=== PATIENT | male | born 1955 | race Caucasian/White ===

== ENCOUNTER → 2017-12-27 | Outpatient (CLI) | payer OTHER ==
[~2017-12-27] MED LIST: ATOR-22 PO; FENO145T26 PO; FINA5TAB PO; GLIP-199 PO; LISI10TA PO; LPR25 PO; SOLI10TA2 PO
== END | disposition home or self-care (01) ==
LOC: C.LABSPEC 16:01
PROVIDERS: ATTEND Urology
DX: N40.1 Benign prostatic hyperplasia with lower urinary tract symptoms (principal); R35.0 Frequency of micturition; N39.41 Urge incontinence

== ENCOUNTER → 2018-01-13 | Outpatient (CLI) | payer OTHER ==
--- NOTE | 2018-01-13 15:01 | DIAGNOSTIC IMAGING REPORT ---
L KNEE 1 OR 2 VIEWS ROUTINE CLINICAL HISTORY: M25.562 pain COMPARISON: None. DISCUSSION: Focal osteochondral defect of the medial femoral condyle. This is immediately peripheral to the intercondylar notch. Maximum dimension appears to be 2.0 x 1.5 cm. There is no significant joint effusion. No additional acute bony abnormalities identified. There is no evidence for soft tissue swelling. IMPRESSION: Osteochondral defect of the medial femoral condyle measuring 2.0 x 1.5 cm in terms of surface dimension. Remainder the study is unremarkable. The above report was generated using voice recognition software. It may contain grammatical, syntax or spelling errors. Electronically signed by: Guillaume Thakkar M.D. 01/13/2018 2:59 PM Dictated Date/Time: 01/13/2018 2:58 PM
== END | disposition home or self-care (01) ==
LOC: C.RAD 14:24
PROVIDERS: ATTEND Nurse Practitioner Family
DX: M25.562 Pain in left knee (principal); M24.10 Other articular cartilage disorders, unspecified site

== ENCOUNTER → 2018-03-14 | Outpatient (CLI) | payer OTHER ==
[~2018-03-14] MED LIST changes: +ASPI81TA28 PO; +TRAM-10 PO
--- NOTE | 2018-03-14 11:40 | DIAGNOSTIC IMAGING REPORT ---
LEFT KNEE MRI HISTORY: LEFT KNEE PAIN COMPARISON STUDY: Left knee 02/06/2018. TECHNIQUE: Multiplanar multisequence MRI of the left knee was performed according to standard department protocol without the use of contrast. FINDINGS: Menisci: The lateral meniscus is intact. There is a small oblique tear extending to the undersurface of the body and posterior horn of the medial meniscus. Ligaments: The anterior and posterior cruciate ligaments are intact. The medial and lateral collateral ligaments are normal in appearance. Extensor mechanism: The quadriceps tendon and patellar ligament are intact. Articular cartilage and bone: Large osteochondral defect involving the medial aspect of the medial femoral condyle. The size of the defect is 2.0 x 1.6 cm. There is no surrounding edema. Therefore, this is consistent with an old process. There is a large intra-articular body medial to the medial femoral condyle which measures 2.1 x 1.1 cm. This is consistent with the osteochondral fragment. There is additional 5 mm intra-articular loose body posterior to the medial femoral condyle. No acute fracture or dislocation. There are few cartilage fissures within the medial femoral condyle. Mild cartilage thinning within the medial femoral condyle and medial tibial plateau. There is cartilage fraying within the median ridge of the patella. Joint effusion: Small to moderate Soft tissues: Subcentimeter popliteal cyst. IMPRESSION: 1. Redemonstration of the large osteochondral defect within the medial femoral condyle measuring 2.0 x 1.6 cm. No surrounding edema, therefore, this is consistent with a chronic process. 2. There are a total of 2 intra-articular loose bodies adjacent to the medial femoral condyle with the largest measuring 2.1 x 1.1 cm. This is likely due to the osteochondral defect. 3. Medial meniscus tear as described above. 4. Small to moderate joint effusion. Electronically signed by: Scot Pineda M.D. 03/14/2018 11:38 AM Dictated Date/Time: 03/14/2018 11:28 AM
== END | disposition home or self-care (01) ==
LOC: C.MRIBC 10:40
PROVIDERS: ATTEND Orthopaedic Surgery
DX: S83.242A Other tear of medial meniscus, current injury, left knee, initial encounter (principal); M25.462 Effusion, left knee; X58.XXXA Exposure to other specified factors, initial encounter

== ENCOUNTER → 2018-03-18 | Day surgery (SDC) | payer OTHER ==
[2018-03-14 14:43] LABS: BASO % 0.3 %; BASO ABS # 0.02 K/uL (0-0.2); EOS ABS # 0.14 K/uL (0-0.5); HEMATOCRIT 45.3 % (42-52); HEMOGLOBIN 15.9 g/dL (14.0-18.0); IG# 0.02 K/uL (0.00-0.02); LYMPH % 30.1 %; LYMPH ABS # 2.08 K/uL (1.2-3.4); MEAN CELL VOLUME 87.5 fL (80-100); MEAN CORPUSCULAR HEMOGLOBIN 30.7 pg (25-34); MEAN CORPUSCULAR HGB CONC 35.1 g/dl (32-36); MEAN PLATELET VOLUME 12.3 fL (7.4-10.4); MONO % 9.7 %; MONO ABS # 0.67 K/uL (0.11-0.59); NEUT % 57.6 %; NEUT ABS # 3.99 K/uL (1.4-6.5); PLATELET COUNT 133 K/uL (130-400); RED CELL DISTRIBUTION WIDTH CV 13.7 % (11.5-14.5); RED CELL DISTRIBUTION WIDTH SD 43.3 fL (36.4-46.3); WHITE BLOOD COUNT 6.92 K/uL (4.8-10.8)
[2018-03-14 15:05] LABS: POTASSIUM 4.2 mmol/L (3.5-5.1)
[2018-03-17 11:19] VITALS: Ht 175.3 cm; Wt 104.5 kg
[~2018-03-18] VITALS: Ht 175.3 cm; Wt 104.5 kg
[~2018-03-18] MED LIST changes: +ASPIRIN 325 MG ECTAB PO ONE; +ASPIRIN/ALUM/MAGNES/CAL CARB 325 MG TAB PO ONE; +ATROPINE SULFATE 0.1 MG/ML 5ML SYR IV PRN; +BUPIVACAINE 0.5 % 5 MG/1 ML PF 10ML VIAL ONE; +CEFAZOLIN 1000MG IV PUSH 7.5 ML IV SCH; +CEFAZOLIN 2000MG IV PUSH 15 ML IV SCH; +CEFAZOLIN SOD 2000MG/15 ML IV PUSH ONE; +DEXAMETHASONE SOD INJ 4 MG/ML VIAL ONE; +EpHEDrine SULFATE INJ 50 MG/ML AMP IV PRN; +EpINEphrine INJ 1MG/ML AMP 1 MG/ML AMP ONE; +FENTANYL CITRATE INJ 50 MCG/1 ML 2 ML VIAL IV PRN; +FENTANYL CITRATE INJ 50 MCG/1 ML 2 ML VIAL ONE; +FLUMAZENIL 0.1 MG/1 ML 10 ML VIAL IV PRN; +KETOROLAC TROMETHAMINE 30 MG/ML VIAL ONE; +LABETALOL HCL IV 5 MG/ML 20ML IV PRN; +LACTATED RINGER'S 1000ML 1,000 ML IV SCH; +LIDOCAINE HCL 2% 2 ML VIAL (20MG/ML) ONE; +MIDAZOLAM HCL 1 MG/ML 2ML VIAL ONE; +NALOXONE HCL 0.4 MG/1 ML VIAL/CARP IV PRN; +NURSING VERBAL MED ORDER ONE; +ONDANSETRON INJ 2 MG/ML 2 ML VIAL IV PRN; +ONDANSETRON INJ 2 MG/ML 2 ML VIAL ONE; +PROMETHAZINE HCL INJ 12.5 MG in SODIUM CHLORIDE 0.9% 50ML 50 ML IV PRN; +PROPOFOL IV EMULSION 10 MG/ML 20 ML VIAL ONE; +ROPIVACAINE 0.5% 5 MG/ML 30 ML VIAL ONE; +SODIUM CHLORIDE 0.9% 1000ML 1,000 ML IV SCH; +TRAMADOL HCL 50 MG TAB PO PRN
--- NOTE | 2018-03-18 08:21 | History & Physical Bridge - [place] ---
H&P Re-Evaluation Bridge Note: I have examined the patient, reviewed the History & Physical and in the interval since the performance of the History & Physical I have noted the following changes of clinical significance: No changes noted
--- NOTE | 2018-03-18 09:59 | [facility] Post Operative Brief Note ---
Immediate Operative Summary Operative Date March 18, 2018. Pre-Operative Diagnosis Left Knee Joint Osteoarthritis, Osteochondritis Post-Operative Diagnosis Same Procedure(s) Performed Left Knee Arthroscopy, Loose Body Removal Surgeon Dr. Butler Disc Inspector Surgeon(s) Leonel Stockton PA-C Estimated Blood Loss 0ml Findings Consistent with Post-Op Diagnosis Specimens None Drains None Anesthesia Type General Complication(s) none Disposition Disposition: Recovery Room / PACU
--- NOTE | 2018-03-18 10:09 | Discharge Instructions-SurgCtr ---
Discharge Instructions Date of Service March 18, 2018. Visit Reason for Visit: Left Knee Joint Osteoarthritis, Osteochondritis Discharge Discharge Diagnosis / Problem: SAME ABOVE Discharge Goals Goal(s): Decrease discomfort, Improve function Medications Stopped Medications Name(s): aspirin stopped couple days ago Activity Recommendations Activity Limitations: as noted below Lifting Limitations: until after follow-up appointment Exercise/Sports Limitations: until after follow-up appointment Shower/Bathe: tomorrow Anesthesia . Post Anesthesia Instructions: If you have had General Anesthesia or IV Sedation: * Do not drive today. * Resume driving when surgeon permits. * Do not make important decisions or sign legal documents today. * Call surgeon for: 1. Temperature elevations greater than 101 degrees F. 2. Uncontrollable pain. 3. Excessive bleeding. 4. Persistent nausea and vomiting. 5. Medication intolerance (nausea, vomiting or rash). * For nausea and vomiting use only clear liquids such as: tea, soda, bouillon until nausea subsides, then gradually increase diet as tolerated. * If you have any concerns or questions, call your surgeon's office. If physician is unavailable and it is an emergency, call 911 or go to the nearest emergency room. . Instructions / Follow-Up Instructions / Follow-Up MEDICATIONS: * Resume previous medications unless instructed otherwise by your surgeon. * Always take pain medication on a full stomach or with food to avoid upset stomach. * Do not drink alcohol or drive while taking narcotics. * Ibuprofen or Tylenol may be taken if narcotic not needed. SPECIAL CARE INSTRUCTIONS: __ None _X_ Keep extremity elevated and iced x 48 hours; apply ice 20-30 minutes 8-10 times/day. May remove at night. __ Crutches __ May discard when able __ Brace/Post-op shoe __ 24 hrs/day __ Remove at night _X_ Dressing __ Maintain until seen in office, may shower with plastic over site _X_ Remove dressings in 24-48 hours and then may shower _X_ Cover incisions with band-aids after showering __ Do not remove steri-strips TAKE 325 MG ASPIRIN TWICE DAILY UNTIL WE FOLLOW YOU UP IN THE OFFICE IN 2 WEEKS CONTINUE TO WEAR EUGENIE HOSE STOCKING UNTIL SEEN IN THE OFFICE IN 2 WEEKS Call physician if chills or temperature rises above 102 degrees or pain unrelieved by prescribed pain medications. Office [phone] Diet Recommendations Home Diet: resume previous diet Procedures Procedures Performed: Left Knee Arthroscopy, Loose Body Removal Pending Studies Studies pending at discharge: no Medical Emergencies . Who to Call and When: Medical Emergencies: If at any time you feel your situation is an emergency, please call 911 immediately. . Non-Emergent Contact Non-Emergency issues call your: Primary Care Provider . . "Provider Documentation" section prepared by Leonel Stockton. .
[2018-03-18 11:04] VITALS: TEMP 36.8
--- NOTE | 2018-03-18 11:18 | Anesthesia Progress Nt - [facility] ---
Anesthesia Post Op Note Date & Time March 18, 2018 at 11:18 Vital Signs Pain Intensity: 0 Vital Signs Past 12 Hours Date Time Temp Pulse Resp B/P (MAP) Pulse Ox O2 Delivery O2 Flow Rate FiO2 03/18/18 11:04 36.8 58 18 129/82 (98) 92 Room Air 03/18/18 10:56 58 1 91/57 95 03/18/18 10:56 59 1 03/18/18 10:53 36.1 56 13 91/57 94 Room Air 03/18/18 10:51 59 16 03/18/18 10:51 59 16 96/67 92 03/18/18 10:46 60 17 03/18/18 10:46 60 17 89/57 93 03/18/18 10:42 106/52 03/18/18 10:41 60 16 03/18/18 10:41 61 16 97 03/18/18 10:36 62 10 109/54 98 03/18/18 10:36 63 10 03/18/18 10:31 62 13 03/18/18 10:31 61 13 105/56 99 03/18/18 10:26 62 15 03/18/18 10:26 62 15 91/57 100 03/18/18 10:21 61 12 03/18/18 10:21 61 12 93/50 99 03/18/18 10:16 60 12 93/42 100 03/18/18 10:16 60 12 03/18/18 10:13 95/48 03/18/18 10:11 59 15 03/18/18 10:11 59 15 85/49 100 03/18/18 10:06 60 18 03/18/18 10:06 59 18 109/60 97 03/18/18 10:02 113/54 03/18/18 10:01 36.0 57 16 113/54 96 Mask 6 03/18/18 08:29 36.6 57 16 117/73 (88) 95 Room Air Notes Mental Status: alert / awake / arousable, participated in evaluation Pt Amnestic to Procedure: Yes Nausea / Vomiting: adequately controlled Pain: adequately controlled Airway Patency, RR, SpO2: stable & adequate BP & HR: stable & adequate Hydration State: stable & adequate Anesthetic Complications: no major complications apparent
[2018-03-18 11:26] VITALS: BP 140/83; PULSE 58; O2SAT 95
--- NOTE | 2018-03-18 12:05 | OPERATIVE REPORT ---
DATE OF OPERATION: 03/18/2018 PREOPERATIVE DIAGNOSIS: Osteochondral defect with large loose body, right knee. POSTOPERATIVE DIAGNOSES: 1. Osteochondral defect with large loose body, right knee. 2. Synovitis of the knee joint. PROCEDURE: 1. Right knee arthroscopy with removal of loose bodies. 2. Synovectomy. 3. Chondroplasty, medial femoral condyle. SURGEON: Stanley Butler MD DIRECTOR OF ROTC: Leonel Stockton PA-C. ANESTHESIOLOGIST: Leonel Stringer MD ANESTHESIA: LMA. DRAINS: None. COMPLICATIONS: None. CONDITION: The patient tolerated the procedure well and returned to recovery in apparent satisfactory condition. INDICATIONS FOR SURGERY: Harvey is a 62-year-old male who has had locking and catching in his knee consistent with loose body, also had a large osteochondral defect. We discussed that we could not take care of his arthritis. Goal was to removal of loose bodies causing this catching and locking sensation. The procedure, expected outcome, side effects, and risks were all explained in detail. DESCRIPTION OF PROCEDURE: The patient was taken to the OR at which time he was placed supine on the operating table and put to sleep by the anesthesia department. Examination of right knee was performed. Ligamentous sheriff, this was stable. We went ahead and prepped and draped in usual sterile fashion. We began arthroscopic examination in anteromedial and anterolateral portals. Immediately found a diffuse synovitis throughout the knee joint. We found loose bodies in the posterior medial compartment and one in the anterior compartment. We removed them all. There was a large osteochondral defect in the medial femoral condyle, size of probably [id number]. We debrided this up and did a chondroplasty to smooth this area down. There was a lot of synovitis in the intercondylar notch and the patellofemoral joint. This was shaved out. The lateral compartment was in good shape and the ligaments were fine. Knee then was copiously irrigated. All cannulas removed. Portals were closed with 4-0 nylon sutures, 30 mL of ropivacaine, 10 mg of Toradol, and 1 mL of epinephrine was placed in the knee joint. Placed a sterile dressing of Xeroform, 4 x 4, ABD, Sof-Rol, and Iker bandage and returned back to recovery room in apparent satisfactory condition. SURGICAL FINDINGS: Include: 1. Large osteochondral defect, medial femoral condyle. 2. Multiple loose bodies. 3. Diffuse synovitis in the knee joint. I attest to the content of the Intraoperative Record and any orders documented therein. Any exceptions are noted below. MTDD
--- NOTE | 2018-03-18 13:23 | OPERATIVE REPORT ---
DATE OF OPERATION: 03/18/2018 ADDENDUM POSTOPERATIVE DIAGNOSIS: Need to add - Posterior medial meniscus tear. PROCEDURE: Add - we did a left knee arthroscopy with partial medial meniscectomy. I attest to the content of the Intraoperative Record and any orders documented therein. Any exception s are noted below.
== END | disposition home or self-care (01) ==
LOC: X.SURG 08:05
PROVIDERS: ATTEND Orthopaedic Surgery
DX: M23.42 Loose body in knee, left knee (principal); M21.862 Other specified acquired deformities of left lower leg; E78.5 Hyperlipidemia, unspecified; G47.33 Obstructive sleep apnea (adult) (pediatric); I25.2 Old myocardial infarction; I25.10 Atherosclerotic heart disease of native coronary artery without angina pectoris; I10 Essential (primary) hypertension; E11.9 Type 2 diabetes mellitus without complications; E66.9 Obesity, unspecified; N40.0 Benign prostatic hyperplasia without lower urinary tract symptoms; Z79.82 Long term (current) use of aspirin; Z90.49 Acquired absence of other specified parts of digestive tract; Z96.651 Presence of right artificial knee joint; Z98.1 Arthrodesis status; Z98.41 Cataract extraction status, right eye; Z98.42 Cataract extraction status, left eye; Z86.718 Personal history of other venous thrombosis and embolism; Z87.891 Personal history of nicotine dependence